=== PATIENT | male | born 1975 | race African-American/Black ===

== ENCOUNTER 2018-09-14 20:14 | Emergency (ER) | payer SELFPAY ==
[~2018-09-14] VITALS: Ht 170.2 cm; Wt 73.5 kg
[2018-09-14 23:08] VITALS: BP 115/78
== END 2018-09-15 00:06 | disposition home or self-care (01) ==
LOC: ER 20:14
DX: K40.90 Unilateral inguinal hernia, without obstruction or gangrene, not specified as recurrent (principal)
CPT/HCPCS: 74176